=== PATIENT | male | born 1990 | race Caucasian/White ===

== ENCOUNTER → 2022-10-07 | Emergency (ER) | payer BC ==
[~2022-10-07] MED LIST: Acetaminophen/oxyCODONE 325-10 MG Tab PO ONE; Ondansetron 4 MG Tab.DIS PO ONE; methylPREDNISolone Sodium Succinate 125 MG/2 ML SDV IM ONE
[2022-10-07 15:52] LABS: BASOPHILS PERCENT AUTO 0.3 % (0.0-1.5); EOSINOPHILS PERCENT AUTO 0.1 % (0.0-7.0); HEMATOCRIT 45.7 % (38.0-50.0); HEMOGLOBIN 15.6 g/dL (13.0-17.0); LYMPHOCYTES ABSOLUTE AUTO 1.4 K/uL (0.6-2.4); LYMPHOCYTES PERCENT AUTO 18.6 % (16.0-40.0); MEAN CORPUSCULAR HEMOGLOBIN 30.2 pg (27.0-32.0); MEAN CORPUSCULAR HGB CONC 34.1 g/dL (31.0-37.0); MEAN CORPUSCULAR VOLUME 88.6 fL (80.0-98.0); MONOCYTES ABSOLUTE AUTO 0.3 K/uL (0.0-0.8); NEUTROPHILS ABSOLUTE AUTO 5.6 K/uL (1.4-5.7); NRBC ABSOLUTE 0 K/uL; PLATELET COUNT,PLT 339 K/uL (150-400); RED BLOOD CELL COUNT 5.16 M/uL (4.50-5.90); WHITE BLOOD CELL COUNT,WBC 7.24 K/uL (4.0-11.0)
[2022-10-07 16:15] LABS: CALCIUM 8.8 mg/dL (8.5-10.1); CARBON DIOXIDE,CO2 25.3 mmol/L (21.0-32.0); CREATININE 1.1 mg/dL (0.8-1.3); EST CRCL DRUG DOSING (CG) 112.09 mL/min
== END | disposition home or self-care (01) ==
LOC: MW.ED 13:56
DX: S76.311A Strain of muscle, fascia and tendon of the posterior muscle group at thigh level, right thigh, initial encounter (principal); F17.210 Nicotine dependence, cigarettes, uncomplicated
CPT/HCPCS: 36415; 80048; 85025; 93971; 96372; 99284; A9270; J2930; 99283

== ENCOUNTER 2024-09-13 12:51 | Emergency (ER) | payer BC ==
[2024-09-13] MEDS: Diphtheria,Pertussis(Acell),Tetanus Vaccine 0.5 ML Syringe IM ONE (13:42)
[2024-09-13] MEDS: ceFAZolin 2 GM in Water For Injection, Sterile 20 ML IVPUSH ONE (14:28)
[2024-09-13] MEDS: Lidocaine 1% 5 ML VIAL INJECT ONE (14:53)
== END 2024-09-13 16:20 | disposition home or self-care (01) ==
LOC: MW.ED 12:51
DX: S61.411A Laceration without foreign body of right hand, initial encounter (principal); Z79.899 Other long term (current) drug therapy; Z23 Encounter for immunization; W26.8XXA Contact with other sharp object(s), not elsewhere classified, initial encounter; Y93.89 Activity, other specified
CPT/HCPCS: 12002; 73130; 90471; 90715; 96374; 99283; J0690; J2003; 12042